=== PATIENT | female | born 1980 | race Hispanic/Latino ===

== ENCOUNTER → 2024-06-14 | Day surgery (SDC) | payer OTHER ==
[~2024-06-14] MED LIST: HYDROXYZINE HCL25 MG PO; LACTATED RINGER'S 1,000 ML ONE; LEVOTHYROXINE50 MCG PO; LIDOCAINE HCL 2% LOCAL INJ 5 ML SDV VIAL INJ ONE; METOCLOPRAMIDE HCL 10 MG/2ML VIAL ONE; PROPOFOL IV EMULSION 10 MG/ML 50 ML VIAL IV ONE; SIMVASTATIN20 MG PO; ZINC PO
[2024-06-14 11:20] VITALS: BP 120/80; PULSE 60; RESP 16; TEMP 97.9; O2SAT 99
== END | disposition home or self-care (01) ==
LOC: OR 07:57
PROVIDERS: ATTEND Internal Medicine Gastroenterology
DX: K29.70 Gastritis, unspecified, without bleeding (principal); D12.5 Benign neoplasm of sigmoid colon; K31.89 Other diseases of stomach and duodenum; K59.00 Constipation, unspecified; K44.9 Diaphragmatic hernia without obstruction or gangrene; K21.9 Gastro-esophageal reflux disease without esophagitis; K64.8 Other hemorrhoids; K76.0 Fatty (change of) liver, not elsewhere classified; E03.9 Hypothyroidism, unspecified; E78.5 Hyperlipidemia, unspecified; F41.9 Anxiety disorder, unspecified; Z79.899 Other long term (current) drug therapy
CPT/HCPCS: 43239; 45385; 81025; J2001; J2470; J2704; J2765; J7121; 45378